=== PATIENT | male | born 1950 | race Caucasian/White ===

== ENCOUNTER → 2019-12-11 | Outpatient (CLI) | payer MEDICARE, OTHER ==
[~2019-12-11] MED LIST: ASP81TEC PO; CARV3.12 PO; LOSA50TA6 PO; PNT40TEC PO; [UNRECOGNIZED DRUG - CODE] PO
== END ==
LOC: CARD 10:12
PROVIDERS: ATTEND Physician Assistant
DX: R07.9 Chest pain, unspecified (principal); K21.9 Gastro-esophageal reflux disease without esophagitis; I10 Essential (primary) hypertension; E78.5 Hyperlipidemia, unspecified; I44.7 Left bundle-branch block, unspecified
CPT/HCPCS: 93306

== ENCOUNTER → 2019-12-14 | Outpatient (CLI) | payer MEDICARE, OTHER ==
[~2019-12-14] VITALS: Ht 183 cm; Wt 135.0 kg
[~2019-12-14] MED LIST changes: +CATHETER FLUSH 10 ML SYR IV PRN; +REGADENOSON 0.4 MG/5 ML SYR (LEXISCAN) IV ONE
[2019-12-14 09:19] VITALS: BP 178/102
--- NOTE | 2019-12-14 14:49 | STRESS TEST ---
DATE OF SERVICE: 12/14/2019 LEXISCAN MYOVIEW STRESS TEST REPORT REFERRING PHYSICIAN: . Baseline heart rate is 68, baseline blood pressure 173/100. Baseline EKG is sinus rhythm with left bundle-branch block. In summary, the patient was injected with 10.07 mCi of technetium-99 Myoview and the resting images were obtained. Then, the patient received 0.4 mg of Lexiscan followed by 31.8 mCi of technetium-99 Myoview. Throughout the test, there were no EKG changes. The resting and stress images were reviewed and compared in the short axis, horizontal long axis, and vertical long axis views. Review of the images showed diaphragmatic attenuation with fixed defect involving the apex. No significant reversibility was seen. SSS is 5, SDS 4, TID value 1.09. On the gated images, the left ventricle is normal in size with mild diffuse left ventricular hypokinesia, calculated ejection fraction 48%. CONCLUSION: 1. The patient tolerated Lexiscan well. 2. Diaphragmatic attenuation with fixed defect involving the apex with no significant ischemia or infarction. 3. Normal left ventricular size with normal contractility. Calculated ejection fraction 48%. Job ID: [id number] DocumentID: [id number] Dictated Date: 12/14/2019 12:25:18 Bottle Filler Date: 12/14/2019 14:48:44 Dictated By: KRSI ROBERTS MD
== END ==
LOC: CARD 07:55
PROVIDERS: ATTEND Physician Assistant
DX: I10 Essential (primary) hypertension (principal); K21.9 Gastro-esophageal reflux disease without esophagitis; R07.9 Chest pain, unspecified; E78.5 Hyperlipidemia, unspecified; I44.7 Left bundle-branch block, unspecified
CPT/HCPCS: 78452; 93017

== ENCOUNTER 2021-06-17 19:41 | Emergency (ER) | payer MEDICARE, OTHER ==
[~2021-06-17] VITALS: Ht 182.8 cm; Wt 135.0 kg
[~2021-06-17 19:41] MED LIST changes: -CATHETER FLUSH 10 ML SYR IV PRN; -REGADENOSON 0.4 MG/5 ML SYR (LEXISCAN) IV ONE
[2021-06-17] MEDS ORDERED: TETANUS,DIPTH,PERTUSS P/F (BOOSTRIX) 0.5 ML VIAL IM ONE (21:00)
--- NOTE | 2021-06-17 21:27 | ED Head Injury ---
General Chief Complaint: Trauma-Non Activation Stated Complaint: HEAD INJURY Nursing Triage Note: PATIENT STATES HE WAS WORKING ON A SHEAD FRAME IN THE BACK OF HIS TRUCK WHEN HE FELL DOWN TO THE GROUND HITTING THE BACK OF HIS HEAD. HE IS UNSURE IF HE LOST CONCIOUSNESS OR NOT. SPOUSE STATES BLOOD WAS SOMEWHAT DRY WHE PATIENT CAME TO THE HOUSE AND TOLD HER HE HAD FALLEN. Source: patient Exam Limitations: no limitations History of Present Illness Date Seen by Provider: Jun 17, 2021 Time Seen by Provider: 21:24 Initial Comments to ER with a posterior midline scalp laceration after he was up on a flat bed truck when he fell back striking the back of his head on a trailer. Does not recall all of the incident or the details surrounding this. Tetanus is not up-to-date. states that he seems to be remembering more now. He does complain of a headache. No neck pain no other injuries. No anticoagulant use nor is there any antiplatelet use. Location Injury Occurred: AT HOME Occurred: just prior to arrival Severity: moderate Location: occipital Method of Injury: fell Loss of Consciousness: no loss of consciousness Associated Systoms: Headaches Allergies and Home Medications Allergies Coded Allergies: lisinopril (Verified Adverse Reaction, Intermediate, COUGH, 05/06/12) *SEE NURSES NOTES Home Medications Aspirin 81 Mg Tabec, 81 MG PO DAILY, (Reported) Carvedilol 3.125 Mg Tablet, 3.125 MG PO BID, (Reported) Losartan Potassium 50 Mg Tablet, 100 MG PO DAILY, (Reported) Pantoprazole Sodium 40 Mg Tablet.dr, 1 TAB PO DAILY, (Reported) Thiamine Mononitrate 100 Mg Tablet, 100 MG PO DAILY, (Reported) Patient Home Medication List Home Medication List Reviewed: Yes Review of Systems Review of Systems Constitutional: see HPI Eyes: No Symptoms Reported Ears, Nose, Mouth, Throat: no symptoms reported Respiratory: no symptoms reported Cardiovascular: no symptoms reported Genitourinary: no symptoms reported Musculoskeletal: no symptoms reported Skin: no symptoms reported Psychiatric/Neurological: No Symptoms Reported Endocrine: No Symptoms Reported Past Jvsehbs-Jumohb-Trfxvp Hx Patient Social History Tobacco Use?: No Use of E-Cig and/or Vaping dev: No Substance use?: No Alcohol Use?: No Pt feels they are or have been: No Immunizations Up To Date First/Initial COVID19 Vaccinat: NOV 2020 Second COVID19 Vaccination Ilya: DECEMBER 2020 COVID19 Vaccine Internet Project Manager: CARLOS Past Medical History Reproductive Disorders: No Physical Exam Vital Signs Vital Signs - First Documented 06/17/21 20:45 Temp 37.0 Pulse 70 Resp 18 B/P (MAP) 197/98 (131) Pulse Ox 97 O2 Delivery Room Air Capillary Refill : Less Than 3 Seconds Height, Weight, BMI Height: '" Weight: lbs. oz. kg; 40.00 BMI Method:Stated General Appearance: WD/WN, no apparent distress, other (Alert and oriented GCS 15) HEENT: PERRL/EOMI, normal ENT inspection, other (There is a 4 cm posterior midline parietal scalp laceration with minimal active oozing of blood.) Neck: non-tender, full range of motion Cardiovascular: regular rate, rhythm, no murmur Respiratory: normal breath sounds, no respiratory distress, no accessory muscle use Gastrointestinal: normal bowel sounds, non tender, soft Extremities: normal range of motion, non-tender Psychiatric: alert, oriented x 3 Crainal Nerves: normal hearing, normal speech, PERRL Motor/Sensory: no motor deficit, no sensory deficit Skin: normal color, warm/dry Procedures/Interventions Wound Location: Scalp Wound Length (cm): 4 Wound's Depth, Shape: linear Wound Explored: clean Irrigated w/ Saline (ccs): 200 Anesthesia: 1% Lidocaine Volume Anesthetic (ccs): 3 Staple Repair: Stapler Skin Precise Number of Sutures: 9 Layer Closure?: 1 Number Deep Layer Sutures: 0 Progress/Results/Core Measures Results/Orders My Orders Orders - CHEPE DUPREE APRN Ct Head/Cervical Spine Wo (06/17/21 20:59) Dipht,Pertuss(Acell),Tet Adult (Boostrix (06/17/21 21:00) Vital Signs/I&O 06/17/21 20:45 Temp 37.0 Pulse 70 Resp 18 B/P (MAP) 197/98 (131) Pulse Ox 97 O2 Delivery Room Air Blood Pressure Mean: 131 Departure Impression Primary Impression: Scalp laceration Additional Impression: Concussion Disposition: 01 HOME, SELF-CARE Condition: Stable Departure-Patient Inst. Decision time for Depature: 21:38 Referrals: STEFANO ESCALANTE MD (PCP/Family) Primary Care Physician Patient Instructions: Concussion in Adults, Laceration Repair With [facility] ED Add. Discharge Instructions: 1. Physical and cognitive rest are the jimenez to concussion recovery typically for about 5 to 7 days.. Return to ER for confusion or intolerable pain. Tylen ol and ibuprofen are fine for pain control. You can shower letting water run over this starting tonight. Return to ER to have the brandon removed in about 7 days. All discharge instructions reviewed with patient and/or family. Voiced understanding. CHEPE DUPREE IS CONSULTANT Jun 17, 2021 21:27
--- NOTE | 2021-06-17 22:30 | Diagnostic Imaging Report ---
PROCEDURE: CT head and CT cervical spine without contrast. TECHNIQUE: Multiple contiguous axial images were obtained through the brain and cervical spine without the use of intravenous contrast. Sagittal and coronal reformations through the cervical spine were then performed. Auto Exposure Controls were utilized during the CT exam to meet ALARA standards for radiation dose reduction. INDICATION: Fall. Head laceration. Head and neck pain. COMPARISON: None. FINDINGS: CT head: No large acute territorial ischemia, mass, or hemorrhage. No midline shift or mass effect. The ventricles, cortical sulci, and basilar cisterns are patent and unremarkable. The calvarium is intact. Scalp laceration is seen overlying the left parietal region. The visualized paranasal sinuses are clear. CT cervical spine: No acute fracture or dislocation is seen in the cervical spine. No focal osseous lesions. Vertebral body heights are well-maintained. The craniocervical junction is well-maintained. Moderate degenerative changes are seen in the cervical spine with disc osteophyte complexes and uncovertebral arthropathy. Soft tissues of the neck are unremarkable. IMPRESSION: 1. No hemorrhage or focal intra-axial mass. No CT evidence of large acute territorial ischemia. 2. No acute fracture or dislocation in the cervical spine. Dictated by: Dictated on workstation # [id number]
[2021-06-17] MEDS ORDERED: RX-ONDANSETRON 4 MG ODT (ZOFRAN) PPK #4 PO STA (22:34)
[2021-06-17 22:49] VITALS: BP 164/92
== END 2021-06-17 22:49 | disposition home or self-care (01) ==
LOC: EDUNIT# 19:41 → ER 19:44
DX: S06.0X0A Concussion without loss of consciousness, initial encounter (principal); S01.01XA Laceration without foreign body of scalp, initial encounter; Z23 Encounter for immunization; Z79.82 Long term (current) use of aspirin; W22.8XXA Striking against or struck by other objects, initial encounter
CPT/HCPCS: 70450; 72125; 90715

== ENCOUNTER → 2022-07-23 | Outpatient (CLI) | payer MEDICARE, OTHER ==
[~2022-07-23] VITALS: Ht 182 cm; Wt 132.0 kg
[~2022-07-23] MED LIST changes: +CATHETER FLUSH 10 ML SYR IVP PRN; +REGADENOSON 0.4 MG/5 ML SYR (LEXISCAN) IV ONE; +meTOprolol 5 MG/5 ML (LOPRESSOR) VIAL IV ONE; +meTOprolol 5 MG/5 ML (LOPRESSOR) VIAL ONE
[2022-07-23] MEDS: CATHETER FLUSH 10 ML SYR IVP PRN ×2 (08:49→10:03)
[2022-07-23 10:01] VITALS: BP 232/121
--- NOTE | 2022-07-23 12:05 | Cardiology Stress Test Report ---
Stress Test Report Date of Procedure/Referring: Date of Procedure: Jul 23, 2022 PCP Danish Crenshaw - [facility] Admitting Physician Admitting Physician: Attending Physician: Kris Mclain MD Indications: HTN Baseline Heart Rate: 64 Baseline Blood Pressure: Blood Pressure Systolic: 232 Blood Pressure Diastolic: 121 Baseline Vitals Vital Signs Date Time Temp Pulse Resp B/P (MAP) Pulse Ox O2 Delivery O2 Flow Rate FiO2 07/23/22 10:01 64 16 232/121 (158) 98 Room Air Baseline EKG: Baseline EKG: LBBB Summary After explaining the procedure to the patient, he signed a consent and then brought to the stress nuclear laboratory. Patient received 0.4 mg Lexiscan for stress test, ECG, heart rate and blood pressure were monitored continuously. Resting and stress dose of radio tracer were injected, imaging was acquired and reviewed in short axis, horizontal long axis and vertical long axis views. TID: 1.02 SSS: 13 SDS: 5 EF: 43 1. Patient tolerated Lexiscan well 2. Baseline left bundle branch block persisted during test 3. Baseline hypertension persisted during test 4. Decreased uptake involving the apex, anteroapical and inferoapical segment with reversible ischemia involving the anterior apical and inferoapical segment. Fixed defect at the apex 5. Normal left ventricular size with hypokinesia at the apex and anterior wall, ejection fraction 43% Copy Copies To 1: [facility]/KRIS LIVINGSTON MD Jul 23, 2022 12:05
== END ==
LOC: CARD 07-09 07:45
PROVIDERS: ATTEND Internal Medicine Cardiovascular Disease
DX: I10 Essential (primary) hypertension (principal); I25.10 Atherosclerotic heart disease of native coronary artery without angina pectoris
CPT/HCPCS: 78452; 93017; A9502